=== PATIENT | female | born 1975 | race Caucasian/White ===

== ENCOUNTER 2016-09-23 20:46 | Emergency (ER) | payer OTHER ==
[2016-09-23 20:48] VITALS: BP 174/84; PULSE 100; RESP 16; TEMP 98.3; O2SAT 100
[2016-09-23 21:11] VITALS: O2SAT 99
[2016-09-23 21:20] LABS: AUTOMATED NEUTROPHIL # 7.2 TH/MM3 (1.8-7.7); BASOPHIL # 0.1 TH/MM3 (0-0.2); BASOPHIL % 0.7 % (0.0-2.0); EOSINOPHIL # 0.2 TH/MM3 (0-0.4); EOSINOPHIL % 1.9 % (0.0-4.0); HEMATOCRIT 36.6 % (35.0-46.0); HEMO FLAGS DIFF FINAL; LYMPH % 23.8 % (9.0-44.0); LYMPHOCYTE # 2.5 TH/MM3 (1.0-4.8); MEAN CELL VOLUME 78.8 FL (80.0-100.0); MONO % 4.5 % (0.0-8.0); NEUT % 69.1 % (16.0-70.0); PLATELET COUNT 307 TH/MM3 (150-450); RED BLOOD COUNT 4.64 MIL/MM3 (4.00-5.30); RED CELL DISTRIBUTION WIDTH 15.6 % (11.6-17.2); WHITE BLOOD COUNT 10.4 TH/MM3 (4.0-11.0)
[2016-09-23 21:38] LABS: ANION GAP 7 MEQ/L (5-15); AST (GOT) 13 U/L (15-37); BLOOD UREA NITROGEN 19 MG/DL (7-18); CHLORIDE 105 MEQ/L (98-107); GLOMERULAR FILTRATION RATE 83 ML/MIN (>89); MAGNESIUM 1.9 MG/DL (1.5-2.5); POTASSIUM 3.9 MEQ/L (3.5-5.1); SODIUM (NA) 139 MEQ/L (136-145)
[2016-09-23 21:41] LABS: APTT (PATIENT) 27.6 SEC (24.3-30.1); PROTHROMBIN TIME - PATIENT 11.1 SEC (9.8-11.6)
[2016-09-23 21:43] LABS: ALKALINE PHOSPHATASE 123 U/L (45-117); ALT (GPT) 19 U/L (10-53); TOTAL BILIRUBIN ADULT 0.3 MG/DL (0.2-1.0)
--- NOTE | 2016-09-23 21:58 | PD ---
HPI Chief Complaint: Chest Pain Time Seen by Provider: 21:55 Travel History International Travel<30 days: No Contact w/Intl Traveler<30days: No Traveled to known affect area: No History of Present Illness HPI 41-year-old female that presents to the ED for evaluation of chest pain. Patient reports that for the past 2-3 weeks she's been having palpitations as well as some shortness of breath that she is following up with her debt counselor for this but she has not had any testing yet. Per patient she developed chest pain about an hour before coming which is what concerned her. Per patient she' s never had this before. She has no history of heart disease on herself but she does have a history of family members having heart heart disease. She does have a history of gestational hypertension and diabetes. She is about 15 months . She denies any recent travel or using any control. Per patient she had a fallopian tubal ligation. She states that she has no abdominal pain. No surgeries to the chest. No history of asthma. Remote history of smoking having quit 12 years ago. States that the chest pain feels like a pressure like something sitting on her chest. She denies any allergies. She states no medications. No trauma. Pain per patient is 3 out of 10 and does not radiate. PFSH Past Medical History Diminished Hearing: No Tetanus Vaccination: > 5 Years Influenza Vaccination: No ?: Not Tubal Ligation: Yes Social History Alcohol Use: No Tobacco Use: No Substance Use: No Allergies-Medications (Allergen,Severity, Reaction): Coded Allergies: No Known Allergies (Unverified , 09/23/16) Review of Systems Except as stated in HPI: all other systems reviewed are Neg Physical Exam Narrative GENERAL: SKIN: Warm and dry. HEAD: Atraumatic. Normocephalic. EYES: Pupils equal and round. No scleral icterus. No injection or drainage. ENT: No nasal bleeding or discharge. Mucous membranes pink and moist. Tongue is midline. No uvula deviation. NECK: Trachea midline. No JVD. CARDIOVASCULAR: Regular rate and rhythm. No murmurs, S3, S4. RESPIRATORY: No accessory muscle use. Clear to auscultation. Breath sounds equal bilaterally. GASTROINTESTINAL: Abdomen soft, non-tender, nondistended. Hepatic and splenic margins not palpable. MUSCULOSKELETAL: Extremities without clubbing, cyanosis, or edema. No obvious deformities. Full range of motion of the upper and lower extremities bilaterally. Chest pain is not present with touch. 2+ pulses bilaterally. NEUROLOGICAL: Awake and alert. No obvious cranial nerve deficits. Motor grossly within normal limits. Five out of 5 muscle strength in the arms and legs. Normal speech. PSYCHIATRIC: Appropriate mood and affect; insight and judgment normal. Data Data Last Documented VS Vital Signs Date Time Temp Pulse Resp B/P Pulse Ox O2 Delivery O2 Flow Rate FiO2 09/23/16 21:11 99 09/23/16 21:11 95 Room Air 09/23/16 20:48 98.3 16 174/84 Orders Electrocardiogram (09/23/16 21:02) Ckmb (Isoenzyme) Profile (09/23/16 21:) Complete Blood Count With Diff (09/23/16 21:) Comprehensive Metabolic Panel (09/23/16 21:) D-Dimer (09/23/16 21:02) Magnesium (Mg) (09/23/16 21:02) Prothrombin Time / Inr (Pt) (09/23/16 21:02) Act Partial Throm Time (Ptt) (09/23/16 21:02) Troponin I (09/23/16 21:02) Lipase (09/23/16 21:02) Chest, Single Ap (09/23/16 21:02) Ecg Monitoring (09/23/16 21:02) Bilateral Bp Monitoring (09/23/16 21:02) Iv Access Insert/Monitor (09/23/16 21:02) Oximetry (09/23/16 21:02) Oxygen Administration (09/23/16 21:02) Lorazepam Inj (Ativan Inj) (09/23/16 22:15) Labs Laboratory Tests Test 09/23/16 21:10 White Blood Count 10.4 TH/MM3 Red Blood Count 4.64 MIL/MM3 Hemoglobin 12.1 GM/DL Hematocrit 36.6 % Mean Corpuscular Volume 78.8 FL Mean Corpuscular Hemoglobin 26.0 PG Mean Corpuscular Hemoglobin 33.0 % Concent Red Cell Distribution Width 15.6 % Platelet Count 307 TH/MM3 Mean Platelet Volume 7.8 FL Neutrophils (%) (Auto) 69.1 % Lymphocytes (%) (Auto) 23.8 % Monocytes (%) (Auto) 4.5 % Eosinophils (%) (Auto) 1.9 % Basophils (%) (Auto) 0.7 % Neutrophils # (Auto) 7.2 TH/MM3 Lymphocytes # (Auto) 2.5 TH/MM3 Monocytes # (Auto) 0.5 TH/MM3 Eosinophils # (Auto) 0.2 TH/MM3 Basophils # (Auto) 0.1 TH/MM3 CBC Comment DIFF FINAL Differential Comment Prothrombin Time 11.1 SEC Prothromb Time International 1.0 RATIO Ratio Activated Partial 27.6 SEC Thromboplast Time D-Dimer Quantitative (PE/DVT) 0.26 MG/L FEU Sodium Level 139 MEQ/L Potassium Level 3.9 MEQ/L Chloride Level 105 MEQ/L Carbon Dioxide Level 27.0 MEQ/L Anion Gap 7 MEQ/L Blood Urea Nitrogen 19 MG/DL Creatinine 0.77 MG/DL Estimat Glomerular Filtration 83 ML/MIN Rate Random Glucose 101 MG/DL Calcium Level 8.3 MG/DL Magnesium Level 1.9 MG/DL Total Bilirubin 0.3 MG/DL Aspartate Amino Transf 13 U/L (AST/SGOT) Alanine Aminotransferase 19 U/L (ALT/SGPT) Alkaline Phosphatase 123 U/L Total Creatine Kinase 97 U/L Troponin I LESS THAN 0.02 NG/ML Total Protein 7.8 GM/DL Albumin 3.3 GM/DL Lipase 101 U/L [facility] Medical Decision Making Medical Screen Exam Complete: Yes Emergency Medical Condition: Yes Medical Record Reviewed: Yes Interpretation(s) CBC & BMP Diagram 09/23/16 21:10 LFTs WNL Lipase WNL troponin negative CKMB negative d-dimmer negative EKG shows sinus tachycardia with no sign of acute ischemia or arrhythmia read by me and attending. Differential Diagnosis Chest pain versus a typical chest pain versus ACS versus PE versus pneumonia versus electrolyte abnormality Narrative Course 41-year-old female that presents to the ED for evaluation of chest pain. Patient was properly examined and was found to have signs and symptoms of unclear etiology. Does appear to be a typical. Patient does have risk factors of smoking. She does appear to be hypertensive today with a systolic of 170. Labs and imaging ordered. Labs and imaging showed no sign of acute disease other than sinus tachycardia. Patient was reassessed after given Ativan and does feel improved. At this time this is felt to be a typical chest pain. Patient was given the option of being admitted for the chest pain center for following up outpatient she prefers to follow-up outpatient. I think this is a reasonable option as patient does have good follow-up and she has a debt counselor already. She agrees and understands reasons to come back. Recommend for now until seen by her debt counselor to take an aspirin. See ED for any worsening symptoms. Patient was given a prescription for Vistaril to cover for anxiety. Diagnosis Primary Impression: Atypical chest pain Patient Instructions: General Instructions Additional Instructions: Follow with debt counselor. See ED for worsening symptoms. Take medications as prescribed. Take a baby aspirin everyday until seen by your doctor. Med/Other Pt SpecificInfo: Prescription(s) given Scripts Hydroxyzine Pamoate (Vistaril)25 Mg Cap25 Mg PO QID PRN (ANXIETY) #20 CAP Ref 0 Prov:Bibiana Steiner MD 09/23/16 Disposition: 01 DISCHARGE HOME Condition: Stable [place] Ros[place] Sep 23, 2016 21:58
[2016-09-23 22:09] LABS: CREATINE KINASE 97 U/L (26-192)
[2016-09-23] MEDS ORDERED: LORazepam 2 MG/ML VIAL IV PUSH ONE (22:15)
--- NOTE | 2016-09-23 22:44 | RADRPT ---
EXAM DATE/TIME: 09/23/2016 21:18 [facility] COMPARISON: No previous studies available for comparison. INDICATIONS : Chest pain and shortness of breath. MEDICAL HISTORY : SURGICAL HISTORY : None. ENCOUNTER: Initial ACUITY: 1 day PAIN SCORE: 10/10 LOCATION: Bilateral chest FINDINGS: A single view of the chest demonstrates the lungs to be symmetrically aerated without evidence of mas s, infiltrate or effusion. The cardiomediastinal contours are unremarkable. Osseous structures are intact. CONCLUSION: No acute disease. Carlton Mendez MD on September 23, 2016 at 22:42 Board Certified Radiologist. This report was verified electronically.
[2016-09-23] MEDS ORDERED: VIST25CA PO (22:47)
--- NOTE | 2016-09-24 10:05 | EKG ---
Date Performed: 09/23/2016 Time Performed: 21:05:57 PTAGE: 41 years EKG: SINUS TACHYCARDIA ABNORMAL RHYTHM ECG NO PREVIOUS TRACING DOCTOR: Samir Alvarez Interpretating Date/Time 09/24/2016 10:04:03
== END 2016-09-23 23:20 | disposition home or self-care (01) ==
LOC: NEPC 20:46
DX: R07.89 Other chest pain (principal); R94.31 Abnormal electrocardiogram [ECG] [EKG]
CPT/HCPCS: 71010; 80053; 82550; 83690; 83735; 84484; 85025; 85379; 85610; 85730; 93005; 96374; 99285; J2060